=== PATIENT | male | born 1965 | race Caucasian/White ===

== ENCOUNTER 2017-10-28 21:47 | Inpatient (IN) | payer OTHER ==
[2017-10-28 23:02] VITALS: BP 141/71; PULSE 96; RESP 16; TEMP 97.9; O2SAT 96
[2017-10-28] MEDS ORDERED: SODIUM CHLORIDE 0.9% FLUSH 10 ML FLUSH IV FLUSH PRN (23:45)
--- NOTE | 2017-10-28 23:58 | PD ---
HPI Chief Complaint: Skin Problem Time Seen by Provider: 23:31 Travel History International Travel<30 days: No Contact w/Intl Traveler<30days: No Traveled to known affect area: No History of Present Illness HPI 52-year-old male here for evaluation of left index finger pain and swelling. Patient reports that about 3 weeks ago he cut his finger on a piece of glass. This became infected and he was admitted to the hospital in [place] where they performed a surgery on his finger presumably for a flexor tenosynovitis. Patient reports he was on IV antibiotics for a few days and discharged home with a prescription for oral antibiotics, however because he is homeless and does not have the funds, he was unable to afford the antibiotic. He went back to this hospital where he was readmitted for another few days of IV antibiotics and discharged about a week ago again with a prescription for antibiotics that he was unable to fill. Over the last 3 days or so the pain has increased as well as the swelling. The patient believes his finger is once again infected. He denies fevers or chills. Denies IV drug use. Admits to drinking alcohol daily. Pain in his left index finger is severe, constant, worse with movement and palpation. PFSH Past Medical History Immunizations Current: No Social History Alcohol Use: Yes Tobacco Use: Yes Substance Use: No (DENIES) Allergies-Medications (Allergen,Severity, Reaction): Coded Allergies: No Known Allergies (Unverified , 10/28/17) Review of Systems Except as stated in HPI: all other systems reviewed are Neg Physical Exam Narrative GENERAL: Well-developed, well-nourished, disheveled, no apparent distress. SKIN: Focused skin assessment warm/dry. Left index finger with diffuse swelling held in flexion with severe pain with passive extension and tenderness along the flexor tendon sheath. There is diffuse warmth and erythema to the finger as well with a healing wound on the flexor surface over the middle phalanx. HEAD: Atraumatic. Normocephalic. EYES: Pupils equal and round. No scleral icterus. No injection or drainage. ENT: Mucous membranes pink and dry. CARDIOVASCULAR: Regular rate and rhythm. No murmur appreciated. RESPIRATORY: No accessory muscle use. Clear to auscultation. Breath sounds equal bilaterally. GASTROINTESTINAL: Abdomen soft, non-tender, nondistended. MUSCULOSKELETAL: Left index finger with diffuse swelling held in flexion with severe pain with passive extension and tenderness along the flexor tendon sheath. There is diffuse warmth and erythema to the finger as well with a healing wound on the flexor surface over the middle phalanx. NEUROLOGICAL: Awake and alert. No obvious cranial nerve deficits. Motor grossly within normal limits. Normal speech. PSYCHIATRIC: Appropriate mood and affect; insight and judgment normal. Data Data Last Documented VS Vital Signs Date Time Temp Pulse Resp B/P (MAP) Pulse Ox O2 Delivery O2 Flow Rate FiO2 10/28/17 23:02 97.9 96 16 141/71 (94) 96 Orders Orders Complete Blood Count With Diff (10/28/17 23:39) Comprehensive Metabolic Panel (10/28/17 23:39) Prothrombin Time / Inr (Pt) (10/28/17 23:39) Act Partial Throm Time (Ptt) (10/28/17 23:39) Iv Access Insert/Monitor (10/28/17 23:39) Ecg Monitoring (10/28/17 23:39) Oximetry (10/28/17 23:39) Sodium Chloride 0.9% Flush (Ns Flush) (10/28/17 23:45) Westergren Sedimentation Rate (10/28/17 23:39) Blood Culture (10/28/17 23:39) Alcohol (Ethanol) (10/28/17 23:39) Drug Screen, Random Urine (10/28/17 23:39) Finger (Qhl2neg) (10/28/17 ) Vancomycin Inj (Vancomycin Inj) (10/29/17 00:00) C-Reactive Protein (Crp) (10/29/17 00:05) Labs Laboratory Tests Test 10/29/17 00:05 White Blood Count 9.7 TH/MM3 Red Blood Count 3.70 MIL/MM3 Hemoglobin 12.1 GM/DL Hematocrit 35.2 % Mean Corpuscular Volume 95.2 FL Mean Corpuscular Hemoglobin 32.7 PG Mean Corpuscular Hemoglobin Concent 34.3 % Red Cell Distribution Width 15.3 % Platelet Count 394 TH/MM3 Mean Platelet Volume 6.8 FL Neutrophils (%) (Auto) 52.7 % Lymphocytes (%) (Auto) 35.4 % Monocytes (%) (Auto) 8.8 % Eosinophils (%) (Auto) 2.1 % Basophils (%) (Auto) 1.0 % Neutrophils # (Auto) 5.1 TH/MM3 Lymphocytes # (Auto) 3.4 TH/MM3 Monocytes # (Auto) 0.9 TH/MM3 Eosinophils # (Auto) 0.2 TH/MM3 Basophils # (Auto) 0.1 TH/MM3 CBC Comment DIFF FINAL Differential Comment Erythrocyte Sedimentation Rate 9 mm/hr Prothrombin Time 9.4 SEC Prothromb Time International Ratio 0.9 RATIO Activated Partial Thromboplast Time 25.2 SEC Blood Urea Nitrogen 12 MG/DL Creatinine 0.86 MG/DL Random Glucose 80 MG/DL Total Protein 7.4 GM/DL Albumin 3.7 GM/DL Calcium Level 8.5 MG/DL Alkaline Phosphatase 51 U/L Aspartate Amino Transf (AST/SGOT) 28 U/L Alanine Aminotransferase (ALT/SGPT) 24 U/L Total Bilirubin 0.1 MG/DL Sodium Level 143 MEQ/L Potassium Level 3.6 MEQ/L Chloride Level 108 MEQ/L Carbon Dioxide Level 25.4 MEQ/L Anion Gap 10 MEQ/L Estimat Glomerular Filtration Rate 93 ML/MIN C-Reactive Protein LESS THAN 0.29 MG/DL Ethyl Alcohol Level 113 MG/DL [facility] Medical Decision Making Medical Screen Exam Complete: Yes Emergency Medical Condition: Yes Differential Diagnosis Flexor tenosynovitis, osteomyelitis Narrative Course Shortly after I evaluated the patient I was able to contact our on-call hand surgeon Dr. Gallardo regarding the patient's presentation of likely flexor tenosynovitis. Plan is to start the patient on IV antibiotics and have him elevate the extremity. No need for any imaging other than a simple x-ray to look for foreign body. Records obtained from [facility] show that the patient underwent incision and drainage of left index finger tenosynovitis on 09/23/[address] Sorinao after an MRI of the left hand on 09/21/17 showed no osteomyelitis, however findings were consistent with infected tenosynovitis of the second digit flexor digitorum profundus and superficialis extending to the level of the proximal metacarpal with abscess. Left index finger x-ray shows diffuse soft tissue swelling with no obvious foreign body. CBC: WBC 9.7, hemoglobin 12.1, hematocrit 35.2, platelets 394. ESR is 9. Alcohol level is 113. CMP is unremarkable. Patient was started on IV vancomycin and will be admitted to the medical service for hand surgery consultation for evaluation of likely left index finger flexor tenosynovitis. Case discussed with hospitalist Dr. Stark who will admit the patient to her service. Diagnosis Primary Impression: Flexor tenosynovitis of finger Admitting Information Admitting Physician Requests: Admit Eric Grover MD Oct 28, 2017 23:58
[2017-10-29] MEDS ORDERED: VANCOMYCIN INJ 1,000 MG in SODIUM CHLOR 0.9% 250 ML INJ 250 ML IV ONE ×2
[2017-10-29 00:30] LABS: AUTOMATED NEUTROPHIL # 5.1 TH/MM3 (1.8-7.7); BASOPHIL # 0.1 TH/MM3 (0-0.2); EOSINOPHIL # 0.2 TH/MM3 (0-0.4); EOSINOPHIL % 2.1 % (0.0-4.0); HEMATOCRIT 35.2 % (39.0-51.0); HEMOGLOBIN 12.1 GM/DL (13.0-17.0); LYMPH % 35.4 % (9.0-44.0); LYMPHOCYTE # 3.4 TH/MM3 (1.0-4.8); MEAN CELL VOLUME 95.2 FL (80.0-100.0); MEAN CORPUSCULAR HEMOGLOBIN 32.7 PG (27.0-34.0); MEAN CORPUSCULAR HGB CONC 34.3 % (32.0-36.0); MEAN PLATELET VOLUME 6.8 FL (7.0-11.0); MONO % 8.8 % (0.0-8.0); MONOCYTE # 0.9 TH/MM3 (0-0.9); NEUT % 52.7 % (16.0-70.0); PLATELET COUNT 394 TH/MM3 (150-450); RED CELL DISTRIBUTION WIDTH 15.3 % (11.6-17.2); WHITE BLOOD COUNT 9.7 TH/MM3 (4.0-11.0)
--- NOTE | 2017-10-29 00:30 | RADRPT ---
EXAM DATE/TIME: 10/29/2017 00:17 [facility] COMPARISON: No previous studies available for comparison. INDICATIONS : Pain and swelling, left hand, second digit. Evaluate for foreign body. MEDICAL HISTORY : None. SURGICAL HISTORY : None. ENCOUNTER: Initial ACUITY: 1 month PAIN SCORE: 10/10 LOCATION: Left hand, second digit FINDINGS: Soft tissues of the pointer finger are diffusely swollen. No radiopaque foreign body demonstrated. No fracture, subluxation or significant arthropathy seen. CONCLUSION: Nonspecific soft tissue swelling of the left index finger. No perceptible foreign body. Ruslan Simon MD on October 29, 2017 at 0:27 Board Certified Radiologist. This report was verified electronically.
[2017-10-29 00:50] LABS: INTERNATIONAL NORMALIZED RATIO 0.9 RATIO; PROTHROMBIN TIME - PATIENT 9.4 SEC (9.8-11.6)
[2017-10-29 00:54] LABS: ALBUMIN 3.7 GM/DL (3.4-5.0); ALT (GPT) 24 U/L (12-78); AST (GOT) 28 U/L (15-37); BICARBONATE 25.4 MEQ/L (21.0-32.0); BLOOD UREA NITROGEN 12 MG/DL (7-18); C-REACTIVE PROTEIN LESS THAN 0.29 MG/DL (0.00-0.30); CALCIUM 8.5 MG/DL (8.5-10.1); CHLORIDE 108 MEQ/L (98-107); CREATININE 0.86 MG/DL (0.60-1.30); GLOMERULAR FILTRATION RATE 93 ML/MIN (>89); GLUCOSE,RANDOM 80 MG/DL (74-106); SODIUM (NA) 143 MEQ/L (136-145)
[2017-10-29 00:57] LABS: ALKALINE PHOSPHATASE 51 U/L (45-117); TOTAL BILIRUBIN ADULT 0.1 MG/DL (0.2-1.0); TOTAL PROTEIN 7.4 GM/DL (6.4-8.2)
[2017-10-29] MEDS ORDERED: SODIUM CHLOR 0.9% 1000 ML INJ 1,000 ML IV SCH (02:19)
[2017-10-29] MEDS ORDERED: SODIUM CHLORIDE 0.9% FLUSH 10 ML FLUSH IV FLUSH PRN (02:30)
[2017-10-29] MEDS ORDERED: NALOXONE HCL 0.4 MG/ML AMP IV PUSH PRN (02:30)
[2017-10-29] MEDS ORDERED: Vancomycin Consult Pharmacy 1 EA OTHER SCH (02:30)
[2017-10-29] MEDS ORDERED: ACETAMINOPHEN 325 MG TAB PO PRN (02:30)
[2017-10-29] MEDS ORDERED: SENNOSIDES 8.6 MG TAB PO PRN (02:30)
[2017-10-29] MEDS ORDERED: LACTULOSE SYRUP 20 GM/30 ML CUP PO PRN (02:30)
[2017-10-29] MEDS ORDERED: MAGNESIUM HYDROXIDE SUSP 30 ML CUP PO PRN (02:30)
[2017-10-29] MEDS ORDERED: BISACODYL 10 MG SUPP RECTAL PRN (02:30)
[2017-10-29] MEDS ORDERED: DEXTROSE 50% IN WATER 50 ML VIAL(D50) IV PUSH PRN (03:00)
[2017-10-29] MEDS: PIPERACIL-TAZO 3.375 GM PREMIX 50 ML IV SCH ×3 (03:00→18:16)
[2017-10-29] MEDS: SODIUM CHLOR 0.9% 1000 ML INJ 1,000 ML IV SCH ×2 (03:00→12:49)
[2017-10-29] MEDS ORDERED: GLUCAGON 1 MG/ML VIAL OTHER PRN (03:00)
--- NOTE | 2017-10-29 03:00 | HHI.HP ---
[facility] Service [facility] Primary Care Physician No Primary Care Physician Admission Diagnosis left index finger infection/flexor tenosynovitis Diagnoses: Travel History International Travel<30 Days: No Contact w/Intl Traveler <30 Da: No Traveled to Known Affected Are: No History of Present Illness 52-year-old homeless male with a past medical history significant for hypothyroidism and recent diagnosis of presumed flexor tenosynovitis [place]ent[place] in the emergency department for evaluation of right second digit anger pain and swelling. The patient reports that approximately 3 weeks ago he cut his finger on a piece of glass. This became infected and he was admitted to the hospital in [place] where they performed an incision and drainage on his finger. He reports that he was on IV antibiotics for several days and discharged home with a prescription for oral antibiotics. The patient reports that he was compliant with his antibiotics and took them until they were gone however ED documentation states that the patient never filled his prescription because he did not have the money to do so. He went back to the hospital in [place] where he was readmitted for another round of IV antibiotics and discharged about a week ago with another prescription for by mouth antibiotics. Again the patient reports compliance to me however denies this to the ED physician. The patient endorses one week. He denies chest pain. Denies shortness of breath, cough. Denies nausea/vomiting/diarrhea. Review of Systems Except as stated in HPI: all other systems reviewed are Neg Past Family Social History Past Medical History Hypothyroidism ? DM Past Surgical History Incision and drainage left index finger Reported Medications Levothyroxine 75 g Allergies: Coded Allergies: No Known Allergies (Unverified , 10/28/17) Family History Negative for CAD/DM Social History Smokes proximately 5 cigarettes per day. Endorses occasional alcohol. Negative for marijuana or other illicit drugs. Physical Exam Vital Signs Vital Signs Date Time Temp Pulse Resp B/P (MAP) Pulse Ox O2 Delivery O2 Flow Rate FiO2 10/28/17 23:02 97.9 96 16 141/71 (94) 96 Physical Exam GENERAL: male lying in bed SKIN: Erythematous and swollen left index finger HEAD: Atraumatic. Normocephalic. No temporal or scalp tenderness. EYES: Pupils equal round and reactive. Extraocular motions intact. No scleral icterus. No injection or drainage. ENT: Nose without bleeding, purulent drainage or septal hematoma. Throat without erythema, tonsillar hypertrophy or exudate. Uvula midline. Airway patent. NECK: Trachea midline. No JVD or lymphadenopathy. Supple, nontender, no meningeal signs. CARDIOVASCULAR: Regular rate and rhythm without murmurs, gallops, or rubs. RESPIRATORY: Clear to auscultation. Breath sounds equal bilaterally. No wheezes , rales, or rhonchi. GASTROINTESTINAL: Abdomen soft, non-tender, nondistended. No hepato-splenomegaly , or palpable masses. No guarding. MUSCULOSKELETAL: Patient unable to flex left index finger. No calf tenderness or lower extremity edema. NEUROLOGICAL: Awake and alert. Cranial nerves II through XII intact. Motor and sensory grossly within normal limits. Normal speech. Laboratory Laboratory Tests Test 10/29/17 00:05 White Blood Count 9.7 Red Blood Count 3.70 Hemoglobin 12.1 Hematocrit 35.2 Mean Corpuscular Volume 95.2 Mean Corpuscular Hemoglobin 32.7 Mean Corpuscular Hemoglobin Concent 34.3 Red Cell Distribution Width 15.3 Platelet Count 394 Mean Platelet Volume 6.8 Neutrophils (%) (Auto) 52.7 Lymphocytes (%) (Auto) 35.4 Monocytes (%) (Auto) 8.8 Eosinophils (%) (Auto) 2.1 Basophils (%) (Auto) 1.0 Neutrophils # (Auto) 5.1 Lymphocytes # (Auto) 3.4 Monocytes # (Auto) 0.9 Eosinophils # (Auto) 0.2 Basophils # (Auto) 0.1 CBC Comment DIFF FINAL Differential Comment Erythrocyte Sedimentation Rate 9 Prothrombin Time 9.4 Prothromb Time International Ratio 0.9 Activated Partial Thromboplast Time 25.2 Blood Urea Nitrogen 12 Creatinine 0.86 Random Glucose 80 Total Protein 7.4 Albumin 3.7 Calcium Level 8.5 Alkaline Phosphatase 51 Aspartate Amino Transf (AST/SGOT) 28 Alanine Aminotransferase (ALT/SGPT) 24 Total Bilirubin 0.1 Sodium Level 143 Potassium Level 3.6 Chloride Level 108 Carbon Dioxide Level 25.4 Anion Gap 10 Estimat Glomerular Filtration Rate 93 C-Reactive Protein LESS THAN 0.29 Ethyl Alcohol Level 113 Date/Time Source Procedure Growth Status 10/29/17 00:05 Blood Peripheral Aerobic Blood Culture Pending Received 10/29/17 00:05 Blood Peripheral Anaerobic Blood Culture Pending Received Result Diagram: 10/29/17 0005 10/29/17 0005 Ginorinhebert VTE Risk Assessment Ginorinhebert VTE Risk Assessment: No/Low Risk (score <= 1) Caprini Risk Assessment Model Point Value = 1 Point Value = 2 Point Value = 3 Point Value = 5 Age 41-60 Minor surgery BMI > 25 kg/m2 Swollen legs Varicose veins or History of unexplained or recurrent spontaneous Oral contraceptives or hormone replacement Sepsis (< 1 month) Serious lung disease, including pneumonia (< 1 month) Abnormal pulmonary function Acute myocardial infarction Congestive heart failure (< 1 month) History of inflammatory bowel disease Medical patient at bed rest Age 61-74 Arthroscopic surgery Major open surgery (> 45 min) Laparoscopic surgery (> 45 min) Malignancy Confined to bed (> 72 hours) Immobilizing plaster cast Central venous access Age >= 75 History of VTE Family history of VTE Factor V Leiden Prothrombin [id number] Lupus anticoagulant Anticardiolipin antibodies Elevated serum homocysteine Heparin-induced thrombocytopenia Other congenital or acquired thrombophilia Stroke (< 1 month) Elective arthroplasty Hip, pelvis, or leg fracture Acute spinal cord injury (< 1 month) Prophylaxis Regimen Total Risk Factor Score Risk Level Prophylaxis Regimen 0-1 Low Early ambulation 2 Moderate Order ONE of the following: *Sequential Compression Device (SCD) *Heparin 5000 units SQ BID 3-4 Higher Order ONE of the following medications: *Heparin 5000 units SQ TID *Enoxaparin/Lovenox 40 mg SQ daily (WT < 150 kg, CrCl > 30 mL/min) *Enoxaparin/Lovenox 30 mg SQ daily (WT < 150 kg, CrCl > 10-29 mL/min) *Enoxaparin/Lovenox 30 mg SQ BID (WT < 150 kg, CrCl > 30 mL/min) AND/OR *Sequential Compression Device (SCD) 5 or more Highest Order ONE of the following medications: *Heparin 5000 units SQ TID (Preferred with Epidurals) *Enoxaparin/Lovenox 40 mg SQ daily (WT < 150 kg, CrCl > 30 mL/min) *Enoxaparin/Lovenox 30 mg SQ daily (WT < 150 kg, CrCl > 10-29 mL/min) *Enoxaparin/Lovenox 30 mg SQ BID (WT < 150 kg, CrCl > 30 mL/min) AND *Sequential Compression Device (SCD) Assessment and Plan Assessment and Plan Assessment/plan: 1. Possible recurrent flexor tenosynovitis versus hand cellulitis Finger x-ray shows nonspecific soft tissue swelling, recently reviewed Surgery consulted, appreciate recommendations Vancomycin/Zosyn Monitor for signs of sepsis 2. Hypothyroidism Continue home Synthroid TSH pending 3. Possible diabetes mellitus Patient reports he was told he has diabetes in the past however does not take any medications Blood glucose 80 on arrival to the ED A1c pending SSI Monitor blood glucose FEN NPO Electrolytes: monitor and replete prn Ambulation NS at 100 cc/hr Physician Certification 2 Midnight Certification Type: Admission for Inpatient Services Order for Inpatient Services The services are ordered in accordance with Medicare regulations or non- Medicare payer requirements, as applicable. In the case of services not specified as inpatient-only, they are appropriately provided as inpatient services in accordance with the 2-midnight benchmark. Estimated LOS (days): 2 2 days is the estimated time the patient will need to remain in the hospital, assuming treatment plan goals are met and no additional complications. Post-Hospital Plan: Not yet determined Jdoy Stark MD Oct 29, 2017 03:00
[2017-10-29] MEDS: LEVOTHYROXINE SODIUM 75 MCG TAB PO SCH (06:00)
[2017-10-29 06:44] VITALS: BP 134/87; PULSE 72; RESP 18; O2SAT 95
[2017-10-29] MEDS: INSULIN ASPART SUPPLEMENTAL SCALE SQ SCH ×4 (07:47→21:00)
[2017-10-29] MEDS: SODIUM CHLORIDE 0.9% FLUSH 10 ML FLUSH IV FLUSH SCH ×2 (08:52→21:57)
[2017-10-29] MEDS: DOCUSATE SODIUM 50 MG/SENNA 8.6 MG TAB PO SCH ×2 (08:53→21:00)
--- NOTE | 2017-10-29 09:29 | HHI.PR ---
Subjective Remarks Follow-up tenosynovitis/noncompliance 10/29/17-patient seen and examined, patient is homeless, states he was dropped off in town by his friend. He is from [place] [address] previously had I&D of the right index finger secondary to tenosynovitis. However patient's did not follow -up with medical recommendation. This was discussed with case assistant to arrange transfer to [place]. He complains of pain to right index finger Objective Vitals Vital Signs Date Time Temp Pulse Resp B/P (MAP) Pulse Ox O2 Delivery O2 Flow Rate FiO2 10/29/17 06:44 72 18 134/87 (103) 95 Room Air 10/28/17 23:02 97.9 96 16 141/71 (94) 96 I/O 10/28/17 10/28/17 10/28/17 10/29/17 10/29/17 10/29/17 07:00 15:00 23:00 07:00 15:00 23:00 Intake Total 300 ml Balance 300 ml Intake IV Total 300 ml Result Diagram: 10/29/17 0005 10/29/17 0005 Imaging Last Impressions Finger X-Ray 10/28/17 0000 Signed Impressions: Service Date/Time: Sunday, October 29, 2017 00:17 - CONCLUSION: Nonspecific soft tissue swelling of the left index finger. No perceptible foreign body. Ruslan Simon MD Objective Remarks GENERAL: NAD SKIN: Warm and dry. HEAD: Normocephalic. EYES: No scleral icterus. No injection or drainage. NECK: Supple, trachea midline. No JVD or lymphadenopathy. CARDIOVASCULAR: Regular rate and rhythm without murmurs, gallops, or rubs. RESPIRATORY: Breath sounds equal bilaterally. No accessory muscle use. GASTROINTESTINAL: Abdomen soft, non-tender, nondistended. MUSCULOSKELETAL: No cyanosis, or edema. swollen right second index finger with limited ROM-neurovascular intact BACK: Nontender without obvious deformity. No CVA tenderness. A/P Problem List: (1) Flexor tenosynovitis of finger ICD Code: M65.9 - Synovitis and tenosynovitis, unspecified Status: Acute Assessment and Plan 52-year-old man with 1. Possible recurrent flexor tenosynovitis versus hand cellulitis Finger x-ray shows nonspecific soft tissue swelling, recently reviewed Surgery consulted, appreciate recommendations Currently on Vancomycin/Zosyn pending culture report 2. Hypothyroidism Continue home Synthroid TSH pending 3. Homelessness Case discussed with case assistant will arrange discharge back to Aditya Tee MD Oct 29, 2017 09:29
[2017-10-29] MEDS ORDERED: CEPH-460 PO (09:38)
[2017-10-29 12:00] VITALS: BP 115/64; PULSE 78; RESP 15; O2SAT 100
[2017-10-29] MEDS ORDERED: VANCOMYCIN INJ 1,250 MG in SODIUM CHLOR 0.9% 250 ML INJ 250 ML IV SCH (12:00)
--- NOTE | 2017-10-29 12:13 | RADRPT ---
EXAM DATE/TIME: 10/29/2017 11:11 [facility] COMPARISON: No previous studies available for comparison. INDICATIONS : Left index finger infection flexor/tenosynovitis. CONTRAST: 16 cc Omniscan (gadodiamide) IV MEDICAL HISTORY : None. SURGICAL HISTORY : I and D, left index finger. ENCOUNTER: Initial ACUITY: 1 day PAIN SCORE: 7/10 LOCATION: Left index finger. TECHNIQUE: Multiplanar, multisequence MRI examination was performed without contrast and after the intravenous a dministration of gadolinium. FINDINGS: Patient is reportedly status post incision and drainage of an index finger flexor tenosynovitis. On M RI there is low T1 signal within the marrow of the proximal phalanx of the index finger. This is also associated with marrow edema and marrow enhancement postcontrast. This is most characteristic of a m ild osteomyelitis of the proximal phalanx involving predominantly the proximal portion of the phalanx . There are no drainable fluid collections within the fingers. The flexor tendons appears to be intac t. No other marrow signal abnormalities identified within the left hand. CONCLUSION: 1. Focal marrow edema and marrow enhancement in the proximal portion of the proximal phalanx of the s econd finger most characteristic of a mild osteomyelitis. No abnormal fluid collections within the fi ngers. There is also some subcutaneous edema and soft tissue swelling of the second finger. Monroe Lyons MD on October 29, 2017 at 12:04 Board Certified Radiologist. This report was verified electronically.
[2017-10-29] MEDS ORDERED: GADODIAMIDE PF 287 MG/ML 20 ML VIAL (for RAD MRI) IV PUSH ONE (12:53)
[2017-10-29] MEDS: VANCOMYCIN INJ 1,500 MG in SODIUM CHLORID 0.9% 500 ML INJ 500 ML IV SCH (14:38)
[2017-10-29 15:34] VITALS: BP 135/80; PULSE 56; RESP 18; TEMP 98; O2SAT 96
[2017-10-29] MEDS: ACETAMINOPHEN/HYDROcodone 325 MG/7.5 MG TAB PO PRN ×2 (18:13→22:02)
[2017-10-29 19:44] VITALS: BP 117/68; PULSE 77; RESP 18; O2SAT 99
[2017-10-30] MEDS: PIPERACIL-TAZO 3.375 GM PREMIX 50 ML IV SCH ×3 (00:10→09:02)
[2017-10-30 01:07] VITALS: BP 122/79; PULSE 62; RESP 18; O2SAT 98
[2017-10-30] MEDS: VANCOMYCIN INJ 1,500 MG in SODIUM CHLORID 0.9% 500 ML INJ 500 ML IV SCH ×2 (02:23→14:54)
[2017-10-30] MEDS: ACETAMINOPHEN/HYDROcodone 325 MG/7.5 MG TAB PO PRN ×3 (02:23→12:19)
[2017-10-30 03:39] LABS: AUTOMATED NEUTROPHIL # 2.3 TH/MM3 (1.8-7.7); BASOPHIL % 0.4 % (0.0-2.0); EOSINOPHIL # 0.3 TH/MM3 (0-0.4); EOSINOPHIL % 4.7 % (0.0-4.0); HEMATOCRIT 35.2 % (39.0-51.0); LYMPH % 50.2 % (9.0-44.0); LYMPHOCYTE # 3.3 TH/MM3 (1.0-4.8); MEAN CELL VOLUME 96.6 FL (80.0-100.0); MEAN CORPUSCULAR HGB CONC 34.2 % (32.0-36.0); MEAN PLATELET VOLUME 6.7 FL (7.0-11.0); MONO % 9.7 % (0.0-8.0); MONOCYTE # 0.6 TH/MM3 (0-0.9); PLATELET COUNT 367 TH/MM3 (150-450); RED BLOOD COUNT 3.64 MIL/MM3 (4.50-5.90); RED CELL DISTRIBUTION WIDTH 15.3 % (11.6-17.2); WHITE BLOOD COUNT 6.7 TH/MM3 (4.0-11.0)
[2017-10-30 04:05] LABS: BICARBONATE 26.6 MEQ/L (21.0-32.0); CREATININE 0.69 MG/DL (0.60-1.30)
[2017-10-30] MEDS: LEVOTHYROXINE SODIUM 75 MCG TAB PO SCH (06:36)
[2017-10-30] MEDS: INSULIN ASPART SUPPLEMENTAL SCALE SQ SCH ×2 (08:00→12:00)
[2017-10-30] MEDS: DOCUSATE SODIUM 50 MG/SENNA 8.6 MG TAB PO SCH ×2 (09:00→20:16)
[2017-10-30] MEDS: SODIUM CHLORIDE 0.9% FLUSH 10 ML FLUSH IV FLUSH SCH ×2 (10:04→20:17)
[2017-10-30 12:00] VITALS: BP 114/62; PULSE 59; RESP 17; TEMP 98.4; O2SAT 97
[2017-10-30] MEDS ORDERED: ACETAMINOPHEN/HYDROcodone 325 MG/7.5 MG TAB PO PRN (13:15)
--- NOTE | 2017-10-30 13:20 | HHI.PR ---
Subjective Remarks Follow-up left index finger infection. Reports of increased left index finger pain with decreased range of motion. Discussed with nursing and infectious disease. Objective Vitals Vital Signs Date Time Temp Pulse Resp B/P (MAP) Pulse Ox O2 Delivery O2 Flow Rate FiO2 10/30/17 12:00 98.4 59 17 114/62 (79) 97 10/30/17 10:00 Room Air 10/30/17 09:14 10/30/17 04:38 20 10/30/17 01:07 62 18 122/79 (93) 98 Room Air 10/29/17 19:44 77 18 117/68 (84) 99 Room Air 10/29/17 15:34 98.0 56 18 135/80 (98) 96 Room Air I/O 10/29/17 10/29/17 10/29/17 10/30/17 10/30/17 10/30/17 06:59 14:59 22:59 06:59 14:59 22:59 Intake Total 300 ml 1755 ml Balance 300 ml 1755 ml Intake Oral 240 ml IV Total 300 ml 1515 ml # Voids 1 Result Diagram: 10/30/17 0315 10/30/17 0315 Imaging Last Impressions Hand MRI 10/29/17 0000 Signed Impressions: Service Date/Time: Sunday, October 29, 2017 11:11 - CONCLUSION: 1. Focal marrow edema and marrow enhancement in the proximal portion of the proximal phalanx of the second finger most characteristic of a mild osteomyelitis. No abnormal fluid collections within the fingers. There is also some subcutaneous edema and soft tissue swelling of the second finger. Monroe Lyons MD Finger X-Ray 10/28/17 0000 Signed Impressions: Service Date/Time: Sunday, October 29, 2017 00:17 - CONCLUSION: Nonspecific soft tissue swelling of the left index finger. No perceptible foreign body. Ruslan Simon MD Objective Remarks GENERAL: NAD, well-developed well-nourished SKIN: Warm and dry. HEAD: Normocephalic. EYES: No scleral icterus. No injection or drainage. NECK: Supple, trachea midline. No JVD or lymphadenopathy. CARDIOVASCULAR: Regular rate and rhythm without murmurs, gallops, or rubs. RESPIRATORY: Breath sounds equal bilaterally. No accessory muscle use. GASTROINTESTINAL: Abdomen soft, non-tender, nondistended. MUSCULOSKELETAL: No cyanosis, or edema. swollen left second index finger with limited ROM-neurovascular intact BACK: Nontender without obvious deformity. No CVA tenderness. A/P Problem List: (1) Flexor tenosynovitis of finger ICD Code: M65.9 - Synovitis and tenosynovitis, unspecified Status: Acute Assessment and Plan 52-year-old man with 1. Possible recurrent flexor tenosynovitis with osteomyelitis on MRI. ESR and CRP WNL. Continue IV vancomycin, Zosyn and pain management increase Lortab to 10 mg for pain scale of 6-10 and IV Toradol for 2 days. Counseled regarding narcotics. Consulted infectious disease and hand surgery. 2. Hypothyroidism TSH subtherapeutic doubt compliance. Continue home Synthroid 3. Homelessness. Case discussed with home health care case manager will arrange discharge back to [place] to his original surgeon Henry Mcrae Dr, MD Oct 30, 2017 13:20
--- NOTE | 2017-10-30 13:27 | HHI.PR ---
Subjective Remarks pt seen and d/w dr Peres; also d/w dr Ellsworth pt has no new complaints reviewed his MRI Objective Vital Signs Date Time Temp Pulse Resp B/P (MAP) Pulse Ox O2 Delivery O2 Flow Rate FiO2 10/30/17 12:00 98.4 59 17 114/62 (79) 97 10/30/17 10:00 Room Air 10/30/17 09:14 10/30/17 04:38 20 10/30/17 01:07 62 18 122/79 (93) 98 Room Air 10/29/17 19:44 77 18 117/68 (84) 99 Room Air 10/29/17 15:34 98.0 56 18 135/80 (98) 96 Room Air I/O 10/29/17 10/29/17 10/29/17 10/30/17 10/30/17 10/30/17 07:00 15:00 23:00 07:00 15:00 23:00 Intake Total 300 ml 1755 ml Balance 300 ml 1755 ml Intake Oral 240 ml IV Total 300 ml 1515 ml # Voids 1 Result Diagram: 10/30/17 0315 10/30/17 0315 Other Results left IF unchanged; no erythema or fluctuance CR<2 seconds` pt is comfortable AA x O x 3 he's very pleasant Respiratory effort is normal Assessment and Plan Problem List: (1) Pain in finger of left hand ICD Codes: M79.645 - Pain in left finger(s) Plan: no indication for surgical intervention at this time exam and MRI consistent with osteomyelitis and follow ID recommendations elevation left hand rec transferring back to [facility] for continuity of care Mikey Gallardo III, MD Oct 30, 2017 13:27
--- NOTE | 2017-10-30 14:41 | PD.CONS ---
History of Present Illness Service Infectious Disease Consult Requested By Dr Bubba Gallardo Reason for Consult Evaluate patient with osteo finger Primary Care Physician No Primary Care Physician Diagnoses: History of Present Illness Patient seen and examined. Records reviewed. Patient is a 52-year-old male, had a glass cut his finger in the left hand, left index finger about 3 weeks ago. He had a small wound, and it became infected and he was hospitalized in [facility]. There went incision and drainage and was diagnosed to have Jannette synovitis. He was discharged on oral antibiotic, but he did not feel it because he could not afford it. He ended up getting readmitted, and he got about a week of IV antibiotics and was discharged on some kind of oral antibiotic. He went to a homeless halfway. Patient could not remember the antibiotic that was prescribed to him. He was given Keflex however from the homeless halfway. I don't have the results of any of his cultures. This time his friend brought him here at [facility], and he was admitted for further evaluation of his left index finger. He continues to have swelling as well as pain. He denies any fever or chills or sweats. He has not had any open wound. He has not had any GI or any urinary complaints. He is afebrile. He underwent MRI of the hand and is now showing evidence of osteomyelitis. An MRI done in the other hospital was negative and was showing findings suggestive of tenosynovitis. Hand surgery saw the patient. And he consulted infectious disease to assist with management of his osteomyelitis. Review of Systems Constitutional: DENIES: Fever, Chills Eyes: DENIES: Eye pain Ears, nose, mouth, throat: DENIES: Nasal discharge, Oral lesions, Throat pain, Ear Pain Respiratory: DENIES: Cough, Shortness of breath Cardiovascular: DENIES: Chest pain, Palpitations, Syncope, Dyspnea on Exertion Gastrointestinal: DENIES: Abdominal pain, Diarrhea, Nausea, Vomiting, Difficulty Swallowing Genitourinary: DENIES: Hematuria, Dysuria Musculoskeletal: COMPLAINS OF: Joint pain, Joint Swelling Integumentary: DENIES: Rash Hematologic/lymphatic: DENIES: Lymphadenopathy Neurologic: DENIES: Localized weakness Psychiatric: DENIES: Hallucinations Past Family Social History Allergies: Coded Allergies: No Known Allergies (Unverified , 10/28/17) Past Medical History Hypothyroidism Recent infection of the left index finger, with Jannette synovitis Past Surgical History I&D of the left index finger infection Active Ordered Medications Current Medications Zosyn Vancomycin Medications (Trade) Dose Ordered Sig/Anup Route Start Time Stop Time Status Last Admin Pharmacy Profile Note 0 ml @ 0 mls/hr UNSCH OTHER 10/29/17 02:30 Piperacillin Sod/ Tazobactam Sod 50 ml @ 100 mls/hr Q6H IV 10/29/17 03:00 10/30/17 09:02 (NS Flush) 2 ml UNSCH PRN IV FLUSH 10/29/17 02:30 (NS Flush) 2 ml BID IV FLUSH 10/29/17 09:00 10/30/17 10:04 (Tylenol) 650 mg Q4H PRN PO 10/29/17 02:30 (Zofran Inj) 4 mg Q6H PRN IVP 10/29/17 02:30 (Narcan Inj) 0.4 mg UNSCH PRN IV PUSH 10/29/17 02:30 (Melody-Colace) 1 tab BID PO 10/29/17 09:00 (Milk Of Magnesia Liq) 30 ml Q12H PRN PO 10/29/17 02:30 (Senokot) 17.2 mg Q12H PRN PO 10/29/17 02:30 (Dulcolax Supp) 10 mg DAILY PRN RECTAL 10/29/17 02:30 (Lactulose Liq) 30 ml DAILY PRN PO 10/29/17 02:30 (D50w (Vial) Inj) 50 ml UNSCH PRN IV PUSH 10/29/17 03:00 (Glucagon Inj) 1 mg UNSCH PRN OTHER 10/29/17 03:00 (Synthroid) 75 mcg DAILY@0600 PO 10/29/17 06:00 10/30/17 06:36 Vancomycin HCl 1500 mg/Sodium Chloride 515 ml @ 250 mls/hr Q12H IV 10/29/17 14:00 10/30/17 02:23 Miscellaneous Information SPECIFIC LAB TO BE DRAWN:VANCOMY... ONCE ONCE .XX 10/31/17 01:45 10/31/17 01:46 (Toradol Inj) 30 mg Q6H IV PUSH 10/30/17 14:00 11/01/17 13:59 ([place] 7.5-325 Mg) 1 tab Q4H PRN PO 10/30/17 13:15 ([place] 10-325 Mg) 1 tab Q4H PRN PO 10/30/17 13:15 Family History Noncontributory Social History Smokes proximately 5 cigarettes per day. Endorses occasional alcohol. Negative for marijuana or other illicit drugs. Physical Exam Vital Signs Vital Signs Date Time Temp Pulse Resp B/P (MAP) Pulse Ox O2 Delivery O2 Flow Rate FiO2 10/30/17 12:00 98.4 59 17 114/62 (79) 97 10/30/17 10:00 Room Air 10/30/17 09:14 10/30/17 04:38 20 10/30/17 01:07 62 18 122/79 (93) 98 Room Air 10/29/17 19:44 77 18 117/68 (84) 99 Room Air 10/29/17 15:34 98.0 56 18 135/80 (98) 96 Room Air Physical Exam GENERAL: Patient is a well-nourished, well-developed male, awake and alert, not in respiratory distress. SKIN: Warm and dry. No generalized rash, no ecchymoses and no evidence of embolic lesions. HEAD: Atraumatic. Normocephalic. No temporal wasting, or tenderness. EYES: [place] conjunctiva. No petechia or hemorrhage. Pupils equal, round and reactive to light. Extraocular movements full and intact. No scleral icterus. No injection or drainage. EARS, NOSE AND THROAT: Nose without bleeding or purulent nasal discharge. No sinus tenderness. Mucous membranes pink and moist. No oral lesions noted. No exudate. No oral thrush. NECK: Trachea midline. Supple and not tender, no meningeal signs CARDIOVASCULAR: Regular rate and rhythm. No murmurs, rubs or gallops heard RESPIRATORY: Clear to auscultation. Breath sounds equal bilaterally. No rales , wheezing or rhonchi ABDOMEN: Soft, non-tender, nondistended. Bowel sounds present and normoactive. No guarding. No rebound. No organomegaly. EXTREMITIES: No clubbing, cyanosis, or edema. No calf tenderness. Well perfused and warm. LIF swollen tender to palpation, no erythema, has well healed incisions, very limited ROM, no lymphangitis seen in his forearm. NEUROLOGICAL: Awake and alert. Cranial nerves grossly intact. Motor grossly within normal limits. PSYCHIATRIC: Normal affect, calm and cooperative. LINE: No evidence of infection Laboratory Laboratory Tests Test 10/30/17 03:15 10/30/17 09:15 White Blood Count 6.7 Red Blood Count 3.64 Hemoglobin 12.0 Hematocrit 35.2 Mean Corpuscular Volume 96.6 Mean Corpuscular Hemoglobin 33.0 Mean Corpuscular Hemoglobin Concent 34.2 Red Cell Distribution Width 15.3 Platelet Count 367 Mean Platelet Volume 6.7 Neutrophils (%) (Auto) 35.0 Lymphocytes (%) (Auto) 50.2 Monocytes (%) (Auto) 9.7 Eosinophils (%) (Auto) 4.7 Basophils (%) (Auto) 0.4 Neutrophils # (Auto) 2.3 Lymphocytes # (Auto) 3.3 Monocytes # (Auto) 0.6 Eosinophils # (Auto) 0.3 Basophils # (Auto) 0.0 CBC Comment DIFF FINAL Differential Comment Blood Urea Nitrogen 10 Creatinine 0.69 Random Glucose 84 Calcium Level 8.0 Sodium Level 140 Potassium Level 3.9 Chloride Level 107 Carbon Dioxide Level 26.6 Anion Gap 6 Estimat Glomerular Filtration Rate 119 Urine Opiates Screen NEG Urine Barbiturates Screen NEG Urine Amphetamines Screen NEG Urine Benzodiazepines Screen NEG Urine Cocaine Screen NEG Urine Cannabinoids Screen NEG Date/Time Source Procedure Growth Status 10/29/17 00:05 Blood Peripheral Aerobic Blood Culture - Preliminary NO GROWTH IN 1 DAY Resulted 10/29/17 00:05 Blood Peripheral Anaerobic Blood Culture - Preliminary NO GROWTH IN 1 DAY Resulted Result Diagram: 10/30/175 10/30/17 0315 Imaging RADIOLOGY STUDIES/FILMS REVIEWED Hand MRI 10/29/17 0000 Signed Impressions: Service Date/Time: Sunday, October 29, 2017 11:11 - CONCLUSION: 1. Focal marrow edema and marrow enhancement in the proximal portion of the proximal phalanx of the second finger most characteristic of a mild osteomyelitis. No abnormal fluid collections within the fingers. There is also some subcutaneous edema and soft tissue swelling of the second finger. Monroe Lyons MD Finger X-Ray 10/28/17 0000 Signed Impressions: Service Date/Time: Sunday, October 29, 2017 00:17 - CONCLUSION: Nonspecific soft tissue swelling of the left index finger. No perceptible foreign body. Ruslan Simon MD Assessment and Plan Assessment and Plan IMPRESSION Persistent pain and swelling LIF, MRI showing osteo - ESR and CRP both normal Hx hypothyroidism RECOMMENDATION Get culture results from [facility] Continue IV Vanco Stop Zosyn Cipro If organism susceptible to Cipro, can use this for Rx of his osteo x several months Will await records from other hospital Monitor progress I will follow along with you Thank you for this consultation Discussed Condition With D/W Elaine Holloway MD Oct 30, 2017 14:40
[2017-10-30] MEDS: KETOROLAC TROMETHAMINE 30 MG/ML (IVP) VIAL IV PUSH SCH ×2 (14:55→20:16)
[2017-10-30 16:00] VITALS: BP 122/67; PULSE 62; RESP 17; TEMP 97.4; O2SAT 98
[2017-10-30] MEDS: ACETAMINOPHEN/HYDROcodone 325 MG/10 MG TAB PO PRN ×2 (16:18→20:17)
[2017-10-30 20:00] VITALS: BP 136/78; PULSE 54; RESP 20; TEMP 98; O2SAT 98
[2017-10-30] MEDS: CIPROFLOXACIN 750 MG TAB PO SCH (20:17)
[2017-10-31] VITALS: BP 147/78; PULSE 50; RESP 20; TEMP 97.9; O2SAT 98
[2017-10-31] MEDS: ACETAMINOPHEN/HYDROcodone 325 MG/10 MG TAB PO PRN ×5 (00:50→20:09)
[2017-10-31] MEDS: VANCOMYCIN INJ 1,500 MG in SODIUM CHLORID 0.9% 500 ML INJ 500 ML IV SCH (01:10)
[2017-10-31] MEDS ORDERED: PHARMACY ORDERED LAB ONE (01:45)
[2017-10-31] MEDS: KETOROLAC TROMETHAMINE 30 MG/ML (IVP) VIAL IV PUSH SCH ×3 (01:51→13:55)
[2017-10-31 04:00] VITALS: BP 144/65; PULSE 53; RESP 20; TEMP 97.8; O2SAT 97
[2017-10-31] MEDS: LEVOTHYROXINE SODIUM 75 MCG TAB PO SCH (05:39)
[2017-10-31 08:00] VITALS: BP 145/76; PULSE 50; RESP 14; TEMP 97.3; O2SAT 98
[2017-10-31] MEDS: SODIUM CHLORIDE 0.9% FLUSH 10 ML FLUSH IV FLUSH SCH ×2 (08:20→20:09)
[2017-10-31] MEDS: DOCUSATE SODIUM 50 MG/SENNA 8.6 MG TAB PO SCH ×2 (08:20→20:08)
[2017-10-31] MEDS: CIPROFLOXACIN 750 MG TAB PO SCH ×2 (08:20→20:08)
[2017-10-31 12:00] VITALS: BP 140/80; PULSE 51; RESP 15; TEMP 97.7; O2SAT 97
[2017-10-31] MEDS: VANCOMYCIN INJ 2,000 MG in SODIUM CHLORID 0.9% 500 ML INJ 500 ML IV SCH (13:55)
[2017-10-31] MEDS: ONDANSETRON HCL 4 MG/2 ML VIAL IVP PRN ×2 (13:57→20:12)
--- NOTE | 2017-10-31 14:47 | HHI.PR ---
Subjective Remarks Patient states he's feeling significant improvement since yesterday. The pain is decreased significantly as has the swelling and he states this is the least amount of swelling he's had since before his operation Objective Vital Signs Date Time Temp Pulse Resp B/P (MAP) Pulse Ox O2 Delivery O2 Flow Rate FiO2 10/31/17 12:00 97.7 51 15 140/80 (100) 97 10/31/17 09:20 20 10/31/17 08:00 97.3 50 14 145/76 (99) 98 10/31/17 04:00 Room Air 10/31/17 04:00 97.8 53 20 144/65 (91) 97 10/31/17 00:00 97.9 50 20 147/78 (101) 98 10/31/17 00:00 Room Air 10/30/17 20:00 Room Air 10/30/17 20:00 98.0 54 20 136/78 (97) 98 10/30/17 16:00 97.4 62 17 122/67 (85) 98 I/O 10/30/17 10/30/17 10/30/17 10/31/17 10/31/17 10/31/17 07:00 15:00 23:00 07:00 15:00 23:00 # Voids 1 Result Diagram: 10/30/175 10/30/175 Objective Remarks Examination left hand reveals the index finger has been no erythema or cellulitis or edema or fluctuance. drier and grinder tender to manipulation but nothing surgical Capillary refills less than 2 seconds He is able to move the MP joints and to some degree smaller the PIP joint but stiff as he was when he came in Is awake alert oriented 3 Respiratory effort is normal He is very pleasant Assessment and Plan Problem List: (1) Pain in finger of left hand ICD Codes: M79.645 - Pain in left finger(s) Plan: no indication for surgical intervention at this time No surgical intervention at this time. We'll discontinue Toradol and start ibuprofen orally to try and help with the overall inflammation Follow IDs recommendations Mikey Gallardo III, MD Oct 31, 2017 14:47
--- NOTE | 2017-10-31 15:26 | HHI.PR ---
Subjective Remarks Nursing denies any deterioration since last night. Patient reports having a little nausea. He says that his finger swelling is actually better now than it was postop at the previous hospital. Objective Vital Signs Date Time Temp Pulse Resp B/P (MAP) Pulse Ox O2 Delivery O2 Flow Rate FiO2 10/31/17 12:00 97.7 51 15 140/80 (100) 97 10/31/17 09:20 20 10/31/17 08:00 97.3 50 14 145/76 (99) 98 10/31/17 04:00 Room Air 10/31/17 04:00 97.8 53 20 144/65 (91) 97 10/31/17 00:00 97.9 50 20 147/78 (101) 98 10/31/17 00:00 Room Air 10/30/17 20:00 Room Air 10/30/17 20:00 98.0 54 20 136/78 (97) 98 10/30/17 16:00 97.4 62 17 122/67 (85) 98 I/O 10/30/17 10/30/17 10/30/17 10/31/17 10/31/17 10/31/17 07:00 15:00 23:00 07:00 15:00 23:00 # Voids 1 Result Diagram: 10/30/17 0315 10/30/17 0315 Objective Remarks Left index finger appears globally mildly edematous with no erythema, is unable to fully flex the MCP PIP and DIP joints due to edema and pain. No puncture site evident. A/P Assessment and Plan Left index finger pain 1. Possible recurrent flexor tenosynovitis with osteomyelitis on MRI. Discussed with infectious disease, awaiting outside hospital records that would hopefully demonstrate culture results from most recent I&D, no surgical need at this time per hand surgery.. Continue IV antibiotics for now. Patient has been declined acceptance by [facility] apparently for noncompliance. Will continue with NSAIDs per hand surgery. bc's neg x 2 days here at . 2. Elevated TSH, suspect hypothyroidism, obtaining free T4, Continue home Synthroid, 3. 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
[2017-10-31] MEDS ORDERED: LORazepam 2 MG TAB PO PRN (15:30)
[2017-10-31] MEDS ORDERED: LORazepam 1 MG TAB PO PRN (15:30)
[2017-10-31] MEDS ORDERED: LORazepam 2 MG/ML VIAL IV PUSH PRN ×4 (15:30)
[2017-10-31] MEDS ORDERED: FLUMAZENIL 0.5 MG/5 ML VIAL IV PUSH PRN (15:30)
[2017-10-31 16:00] VITALS: BP 161/84; PULSE 56; RESP 16; TEMP 97.6; O2SAT 95
[2017-10-31] MEDS: IBUPROFEN 600 MG TAB PO SCH ×2 (16:06→21:26)
[2017-10-31 20:00] VITALS: BP 129/67; PULSE 68; RESP 18; TEMP 97.4; O2SAT 96
[2017-11-01] VITALS: BP 145/80; PULSE 57; RESP 16; TEMP 98.4; O2SAT 97
[2017-11-01] MEDS: ACETAMINOPHEN/HYDROcodone 325 MG/10 MG TAB PO PRN ×5 (00:12→17:45)
[2017-11-01] MEDS: VANCOMYCIN INJ 2,000 MG in SODIUM CHLORID 0.9% 500 ML INJ 500 ML IV SCH ×2 (02:40→13:20)
[2017-11-01 04:00] VITALS: BP_SYST 128; BP_SYST 146; BP_DIAS 67; BP_DIAS 90; PULSE 52; PULSE 68; RESP 16; RESP 18; TEMP 98; O2SAT 98
[2017-11-01] MEDS: LEVOTHYROXINE SODIUM 75 MCG TAB PO SCH (05:09)
[2017-11-01] MEDS: IBUPROFEN 600 MG TAB PO SCH ×2 (05:09→13:25)
[2017-11-01 08:15] VITALS: BP 148/74; PULSE 57; RESP 18; TEMP 98; O2SAT 97
[2017-11-01] MEDS: SODIUM CHLORIDE 0.9% FLUSH 10 ML FLUSH IV FLUSH SCH (09:19)
[2017-11-01] MEDS: DOCUSATE SODIUM 50 MG/SENNA 8.6 MG TAB PO SCH (09:19)
[2017-11-01] MEDS: CIPROFLOXACIN 750 MG TAB PO SCH (09:19)
--- NOTE | 2017-11-01 09:20 | MB ---
cc: Mikey Gallardo MD, Louis C MD DATE OF CONSULT: 10/29/2017 HISTORY OF PRESENT ILLNESS: The patient is a 52-year-old male from [place] who had his left second digit incision and drainage in [place] a month or two ago. He states that he cut his finger on a piece of glass. It got infected. He went to the hospital in [place]. They did the incision and drainage. He was on IV antibiotics for several days and discharged home with a prescription for antibiotics. His history is otherwise a little unclear. He returned here after he was admitted to the hospital in [place] for a second time for a round of IV antibiotics, but now he is here with pain and swelling in his left index finger. I reviewed all of his records the nurses had obtained. PAST MEDICAL HISTORY: Hypothyroidism. PAST SURGICAL HISTORY: Incision and drainge, left index finger. MEDICATIONS: Levothyroxine 75 mcg a day. ALLERGIES: NO KNOWN DRUG ALLERGIES. FAMILY HISTORY: Noncontributory. SOCIAL HISTORY: He smokes 5 cigarettes a day. REVIEW OF SYSTEMS: He is not complaining of any headaches, blurry or double vision. He is not complaining of any coughing, wheezing or shortness of breath. He is not complaining of any chest pain or palpitations. He is not complaining of any nausea, vomiting or abdominal pain. He is not complaining of any burning, frequency or urgency with urination. He is not complaining of any spine, neck or back pain. He is not complaining of any night sweats, fevers or chills. He is not complaining of any easy bruising. IMAGING STUDIES: I reviewed his x-ray as well as his MRI as well as the report. VITAL SIGNS: Temperature is 97.9, heart rate 78, blood pressure 114/71, pulse ox 96% on room air. LABORATORY DATA: Laboratory studies were performed. White blood cell count 9.7000. The other lab values are in [facility]. He did have some findings that his white blood cell count is within normal limits. PHYSICAL EXAMINATION: GENERAL: He is awake, alert and oriented x 3. He is pleasant. HEENT: Pupils equal, round. Normocephalic, atraumatic. LUNGS: Respiratory effort is normal. He is lying comfortably in his bed. EXTREMITIES: Examination of the left hand reveals the left index finger is edematous, but it is firm. There is no fluctuance. There is no erythema. There is no induration, but it is exquisitely tender. Capillary refill is less than 2 seconds. There is a well-healed wound with no sign of any wound breakdown or drainage. There is no streaking anywhere up the arm or across the wrist. There is no epitrochlear or axillary adenopathy. There are no other findings. All muscles and tendons appear to be intact. IMPRESSION: Pain, left index finger. My recommendation was for an MRI of his left hand. This was then performed and was found to have a suggestion of osteomyelitis in the left proximal phalanx. There is no fluid collection or anything surgical. My recommendation is intravenous antibiotics. To be completely appropriate, he should be transferred back to the surgeon that has cared for him in the past several weeks for continuity of care. Otherwise, we will take care of him. I will discuss this with the patient's caregivers here. MD ESPERANZA Layne//mike , 01:59 PM , 06:00 PM
[2017-11-01 12:15] VITALS: BP 143/82; PULSE 59; RESP 17; TEMP 97.8; O2SAT 98
--- NOTE | 2017-11-01 14:51 | HHI.IDPN ---
Subjective Subjective Remarks Patient is a 52-year-old male, had a glass cut his finger in the left hand, left index finger about 3 weeks ago. He had a small wound, and it became infected and he was hospitalized in [facility]. There went incision and drainage and was diagnosed to have Jannette synovitis. He was discharged on oral antibiotic, but he did not feel it because he could not afford it. He ended up getting readmitted, and he got about a week of IV antibiotics and was discharged on some kind of oral antibiotic. He went to a homeless [place] [facility]. Patient could not remember the antibiotic that was prescribed to him. He was given Keflex however from the homeless [place] [facility]. I don't have the results of any of his cultures. This time his friend brought him here at [facility], and he was admitted for further evaluation of his left index finger. He continues to have swelling as well as pain. He denies any fever or chills or sweats. He has not had any open wound. He has not had any GI or any urinary complaints. He is afebrile. He underwent MRI of the hand and is now showing evidence of osteomyelitis. An MRI done in the other hospital was negative and was showing findings suggestive of tenosynovitis. Hand surgery saw the patient. And he consulted infectious disease to assist with management of his osteomyelitis. Notes reviewed Some improvement in his LIF pain, pain mostly in PIP joint C/S no available yet from other facility No fever NO rash No diarrhea Antibiotics Current Medications Vanco Cipro Medications (Trade) Dose Ordered Sig/Anup Route Start Time Stop Time Status Last Admin Pharmacy Profile Note 0 ml @ 0 mls/hr UNSCH OTHER 10/29/17 02:30 (NS Flush) 2 ml UNSCH PRN IV FLUSH 10/29/17 02:30 (NS Flush) 2 ml BID IV FLUSH 10/29/17 09:00 11/01/17 09:19 (Tylenol) 650 mg Q4H PRN PO 10/29/17 02:30 (Zofran Inj) 4 mg Q6H PRN IVP 10/29/17 02:30 10/31/17 20:12 (Narcan Inj) 0.4 mg UNSCH PRN IV PUSH 10/29/17 02:30 (Melody-Colace) 1 tab BID PO 10/29/17 09:00 11/01/17 09:19 (Milk Of Magnesia Liq) 30 ml Q12H PRN PO 10/29/17 02:30 11/01/17 13:26 (Senokot) 17.2 mg Q12H PRN PO 10/29/17 02:30 (Dulcolax Supp) 10 mg DAILY PRN RECTAL 10/29/17 02:30 (Lactulose Liq) 30 ml DAILY PRN PO 10/29/17 02:30 (D50w (Vial) Inj) 50 ml UNSCH PRN IV PUSH 10/29/17 03:00 (Glucagon Inj) 1 mg UNSCH PRN OTHER 10/29/17 03:00 (Synthroid) 75 mcg DAILY@0600 PO 10/29/17 06:00 11/01/17 05:09 ([place] 7.5-325 Mg) 1 tab Q4H PRN PO 10/30/17 13:15 ([place] 10-325 Mg) 1 tab Q4H PRN PO 10/30/17 13:15 11/01/17 13:21 (Cipro) 750 mg Q12HR PO 10/30/17 21:00 11/01/17 09:19 Vancomycin HCl 2000 mg/Sodium Chloride 520 ml @ 257.5 mls/ hr Q12H IV 10/31/17 14:00 11/01/17 13:20 Miscellaneous Information SPECIFIC LAB TO BE SHIRLEY... ONCE ONCE .XX 11/02/17 13:45 11/02/17 13:46 (Motrin) 600 mg Q8HR PO 10/31/17 14:45 11/01/17 13:25 (Romazicon Inj) 0.2 mg Q1M PRN IV PUSH 10/31/17 15:30 (Ativan) 1 mg Q4H PRN PO 10/31/17 15:30 10/31/17 20:12 (Ativan Inj) 1 mg Q4H PRN IV PUSH 10/31/17 15:30 (Ativan) 2 mg Q2H PRN PO 10/31/17 15:30 (Ativan Inj) 2 mg Q2H PRN IV PUSH 10/31/17 15:30 (Ativan Inj) 2 mg Q1H PRN IV PUSH 10/31/17 15:30 (Ativan Inj) 2 mg Q15M PRN IV PUSH 10/31/17 15:30 (Librium) 5 mg TID PO 10/31/17 15:30 11/01/17 13:20 Lines PIV Past Medical History Hypothyroidism Recent infection of the left index finger, with Jannette synovitis Past Surgical History I&D of the left index finger infection Allergies: Coded Allergies: No Known Allergies (Unverified , 10/28/17) Objective . Vital Signs Date Time Temp Pulse Resp B/P (MAP) Pulse Ox O2 Delivery O2 Flow Rate FiO2 11/01/17 10:10 Room Air 11/01/17 08:15 98.0 57 18 148/74 (98) 97 11/01/17 04:00 98.0 52 16 146/90 (108) 98 11/01/17 04:00 Room Air 11/01/17 04:00 98.0 68 18 128/67 (87) 98 11/01/17 00:00 98.4 57 16 145/80 (101) 97 11/01/17 00:00 Room Air 10/31/17 20:00 Room Air 10/31/17 20:00 97.4 68 18 129/67 (87) 96 10/31/17 16:00 97.6 56 16 161/84 (109) 95 . Laboratory Tests Test 10/31/17 00:58 Free Thyroxine 0.74 NG/DL Imaging Last Impressions Hand MRI 10/29/17 0000 Signed Impressions: Service Date/Time: Sunday, October 29, 2017 11:11 - CONCLUSION: 1. Focal marrow edema and marrow enhancement in the proximal portion of the proximal phalanx of the second finger most characteristic of a mild osteomyelitis. No abnormal fluid collections within the fingers. There is also some subcutaneous edema and soft tissue swelling of the second finger. Monroe Lyons MD Finger X-Ray 10/28/17 0000 Signed Impressions: Service Date/Time: Sunday, October 29, 2017 00:17 - CONCLUSION: Nonspecific soft tissue swelling of the left index finger. No perceptible foreign body. Ruslan Simon MD Physical Exam GENERAL: Awake and alert, not in respiratory distress. SKIN: Warm and dry. No generalized rash HEAD: Atraumatic. Normocephalic. No temporal wasting, or tenderness. EYES: [place] conjunctiva. No petechia or hemorrhage. No scleral icterus. No injection or drainage. EARS, NOSE AND THROAT: Nose without bleeding or purulent nasal discharge. No sinus tenderness. Mucous membranes pink and moist. NECK: Trachea midline. Supple and not tender, no meningeal signs CARDIOVASCULAR: Regular rate and rhythm. No murmurs, rubs or gallops heard RESPIRATORY: Clear to auscultation. Breath sounds equal bilaterally. No rales , wheezing or rhonchi ABDOMEN: Soft, non-tender, nondistended. Bowel sounds present and normoactive. No guarding. No rebound. No organomegaly. EXTREMITIES: No clubbing, cyanosis, or edema. No calf tenderness. Well perfused and warm. LIF swollen and tender moncho at PIP, swelling better in MCP joint, no erythema NEUROLOGICAL: Non-focal. PSYCHIATRIC: Normal affect, calm and cooperative. LINE: No evidence of infection Assessment & Plan Remarks IMPRESSION Persistent pain and swelling LIF, MRI showing osteo - ESR and CRP both normal Hx hypothyroidism RECOMMENDATION Continue IV Vanco Cipro If organism susceptible to Cipro, can use this for Rx of his osteo x 2 months Will await records from other hospital Monitor progress D/W Dr Chung ([facility]) Explained plan to the patient Elaine Peres MD Nov 01, 2017 14:51
[2017-11-01 16:15] VITALS: BP 150/78; PULSE 61; RESP 17; TEMP 98.2; O2SAT 97
[2017-11-01] MEDS ORDERED: CIPR750T2 PO ×2 (17:08→17:17)
[2017-11-01] MEDS ORDERED: NAPR500T2 PO (17:10)
[2017-11-01] MEDS ORDERED: LEVO75TA3 PO (17:10)
--- NOTE | 2017-11-01 17:11 | HHI.DCPOC ---
Discharge Care Plan Diagnosis: (1) Osteomyelitis (2) Pain in finger of left hand Goals to Promote Your Health * To prevent worsening of your condition and complications * To maintain your health at the optimal level Directions to Meet Your Goals Take your medications as prescribed Follow your dietary instruction Follow activity as directed Keep your appointments as scheduled Take your immunizations and boosters as scheduled If your symptoms worsen call your PCP, if no PCP go to Urgent Care Center or Emergency Room Smoking is Dangerous to Your Health. Avoid second hand smoke Call the 24-hour hour crisis hotline for domestic abuse at Josué Chung MD Nov 01, 2017 17:11
--- NOTE | 2017-11-01 17:15 | HHI.DS ---
Discharge Summary Admission Date Oct 29, 2017 at 01:11 Discharge Date: Nov 01, 2017 Admitting Diagnosis left index finger infection/flexor tenosynovitis (1) Osteomyelitis ICD Code: M86.9 - Osteomyelitis, unspecified (2) Pain in finger of left hand ICD Code: M79.645 - Pain in left finger(s) Procedures none Brief History - From Admission 52-year-old homeless male with a past medical history significant for hypothyroidism and recent diagnosis of presumed flexor tenosynovitis Zentz in the emergency department for evaluation of right second digit anger pain and swelling. The patient reports that approximately 3 weeks ago he cut his finger on a piece of glass. This became infected and he was admitted to the hospital in [place] where they performed an incision and drainage on his finger. He reports that he was on IV antibiotics for several days and discharged home with a prescription for oral antibiotics. The patient reports that he was compliant with his antibiotics and took them until they were gone however ED documentation states that the patient never filled his prescription because he did not have the money to do so. He went back to the hospital in [place] where he was readmitted for another round of IV antibiotics and discharged about a week ago with another prescription for by mouth antibiotics. Again the patient reports compliance to me however denies this to the ED physician. The patient endorses one week. He denies chest pain. Denies shortness of breath, cough. Denies nausea/vomiting/diarrhea. CBC/BMP: 10/30/17 0315 10/30/17 0315 Significant Findings Laboratory Tests Test 10/30/17 03:15 10/30/17 09:15 10/31/17 00:58 Red Blood Count 3.64 MIL/MM3 (4.50-5.90) Hemoglobin 12.0 GM/DL (13.0-17.0) Hematocrit 35.2 % (39.0-51.0) Mean Platelet Volume 6.7 FL (7.0-11.0) Lymphocytes (%) (Auto) 50.2 % (9.0-44.0) Monocytes (%) (Auto) 9.7 % (0.0-8.0) Eosinophils (%) (Auto) 4.7 % (0.0-4.0) Calcium Level 8.0 MG/DL (8.5-10.1) Free Thyroxine 0.74 NG/DL (0.76-1.46) Vancomycin Level Trough 13.6 MCG/ML (5.0-10.0) Imaging Last Impressions Hand MRI 10/29/17 0000 Signed Impressions: Service Date/Time: Sunday, October 29, 2017 11:11 - CONCLUSION: 1. Focal marrow edema and marrow enhancement in the proximal portion of the proximal phalanx of the second finger most characteristic of a mild osteomyelitis. No abnormal fluid collections within the fingers. There is also some subcutaneous edema and soft tissue swelling of the second finger. Monroe Lyons MD Finger X-Ray 10/28/17 0000 Signed Impressions: Service Date/Time: Sunday, October 29, 2017 00:17 - CONCLUSION: Nonspecific soft tissue swelling of the left index finger. No perceptible foreign body. Ruslan Simon MD PE at Discharge left index finger with diffuse mild-mod edema with no erythema and partially intact ROM limited 2/2 pain Hospital Course Patient was admitted, started on antibiotics. hAnd surgery and infectious disease were consulted since MRI did show osteomyelitis. No surgical intervention was deemed necessary. Outside medical records have been requested. It was confirmed via telephone at the patient's culture from his finger operation was growing strep G. His finger pain and edema had significantly improved. He was incidentally also found to be significantly hypothyroid and started on Synthroid. Patient opted to not receive narcotics upon discharge. Patient has been maximal benefit from hospitalization and is clinically stable for discharge. Is to continue with 2 months of Cipro upon discharge per infectious disease. Pt Condition on Discharge: Stable Discharge Disposition: Discharge Home Discharge Time: > 30 minutes Discharge Instructions DIET: Follow Instructions for: Heart Healthy Diet Activities you can perform: Regular-No Restrictions Follow up Referrals: Hand Surgery - 2 Weeks PCP Follow-up - 1 Week New Medications: Ciprofloxacin (Ciprofloxacin) 750 Mg Tab 750 MG PO BID for Infection, #28 TAB 3 Refills Levothyroxine (Levothyroxine) 75 Mcg Tab 75 MCG PO DAILY for Thyroid, #30 TAB 0 Refills Naproxen (Naproxen) 500 Mg Tab 500 MG PO BID PRN for pain, #30 TAB 0 Refills Josué Chung MD Nov 01, 2017 17:15
[2017-11-02] MEDS ORDERED: PHARMACY ORDERED LAB ONE (13:45)
== END 2017-11-01 18:17 | disposition home or self-care (01) | DRG 541 ==
LOC: NEPD 21:47 → NEDA 10-29 01:11 → NEDH 10-29 14:36 → N04A 10-30 09:48
PROVIDERS: ADMIT Hospitalist; ATTEND Hospitalist
DX: M86.8X4 Other osteomyelitis, hand (principal); M65.841 Other synovitis and tenosynovitis, right hand; E03.9 Hypothyroidism, unspecified; Z59.0 Homelessness; F17.210 Nicotine dependence, cigarettes, uncomplicated; Z91.19 Patient's noncompliance with other medical treatment and regimen
CPT/HCPCS: 73140; 73220; 80048; 80053; 80202; 80307; 84439; 84443; 85025; 85610; 85652; 85730; 86140; 87040; 96365; A9579; J1885; J2405; J2543; J3370; J7030; J7040; J7050